=== PATIENT | female | born 1985 | race Caucasian/White ===

== ENCOUNTER 2016-05-09 08:47 | Emergency (ER) | payer OTHER ==
[~2016-05-09] VITALS: Ht 172.7 cm; Wt 140.0 kg
[~2016-05-09 08:47] MED LIST: ACET1TAB42 PO; NPR500T PO
[2016-05-09 08:48] VITALS: BP 129/86; PULSE 105; RESP 20; O2SAT 98
--- NOTE | 2016-05-09 08:55 | ED.REPORT ---
HPI-Chest Pain Under 40 Date of Service May 09, 2016 ED Provider: Dr. Randolph Kaplan MD A 31 year old female presents to the ED complaining of chest pain that began at 0200 last night. She describes the pain as "tumbling rocks in her chest". The pain begins as a burning sensation and radiates throughout her chest. Associated symptoms include nausea, intractable vomiting, watery diarrhea and abdominal pain. Patient reports numerous episodes of vomiting. She denies any recent travel, surgeries, hormonal therapy, swelling in the lower extremities or history of blood clots. Recent sick contacts include her co-workers. Patient denies dizziness, lightheadedness, hematemesis or hematochezia. Nursing Notes Stated Complaint: CHEST PAIN/VOMITING Chief Complaint: Chest Pain Nursing Notes Reviewed: Yes Allergies: Coded Allergies: No Known Allergies (Unverified Allergy, 01/27/12) Scheduled Acetaminophen/Codeine 300-30mg (Acetaminophen/Codeine 300-30mg) 1 Each Tablet 2 TAB PO HS Cephalexin (Keflex) 500 Mg Capsule 500 MG PO QID Naproxen (Naproxen) 500 Mg Tab 500 MG PO BID Scheduled PRN Ondansetron ODT (Zofran ODT) 4 Mg Tablet 4 MG PO Q4H PRN PRN For Nausea General Time Seen by MD: 08:54 Chief Complaint Chest pain Hx Obtained From: Patient Arrived By: Walk-in Sudden in Onset?: No Onset Occurred: 5 - 8 hours ago Symptom Duration: Since onset Location: : Chest left: Chest right: Epigastric Quality: Burning Radiation: : Abdomen Severity: Current: Mild Severity: Maximum: Moderate Associated with: Reports: Nausea, Vomiting, Weakness, Denies: Lightheaded Pertinent Negative: Pt denies other symptoms Recent Healthcare: No recent doctor visit, No recent hospitalization Risk Factors )( CAD Risk Stratification Risk factors reviewed TAD Risk Stratification Risk factors reviewed )( PE Risk Stratification Risk factors reviewed PERC Rule PERC Result: All PERC criteria "No" Past Medical History Past Medical History None reported. Past Surgical History None reported. Smoking History Current Every Day Smoker Social History Other Social History: Good social support, Local resident Ambulatory Status Independent Review of Systems Constitutional: Denies: Chills, Fever Respiratory: Denies: Shortness of breath Cardiovascular: Reports: Chest pain GI: Reports: Abdominal pain, Diarrhea, Nausea, Vomiting, Denies: Hematemesis, Hematochezia Neurologic: Reports: Dizziness, Denies: Change LOC, Lightheaded Complete sys rev & neg: except as marked. Physical Exam Initial Vital Signs Vital Signs (First) Date Time Temp Pulse Resp B/P Pulse Ox O2 Delivery O2 Flow Rate FiO2 05/09/16 08:48 35.6 105 20 129/86 98 Room Air Head / Eyes: Atraumatic, Normocephalic, PERRL Extremities: Vascular intact, Neuro intact, No swelling, No tenderness Skin: Warm, Dry, No cyanosis Neurologic: Alert, Oriented, Nonfocal Psychiatric: Mood/affect normal, Behavior normal, Normal thought content General/Constitutional: Awake, Alert Respiratory / Chest: Atraumatic, Breath sounds NL, Breath sounds = bilat Cardiovascular: Regular rhythm, Heart sounds NL, No murmurs Heart Rate / Rhythm: Positive: Tachycardia Abdomen: Atraumatic, Soft, No guarding, No rebound Tenderness/Guarding/Rebound: Positive: Tender epigastric Interpretation & Diagnostics Lab Results Interpretation Result Diagram: 05/09/16 0950 05/09/16 0950 Test 05/09/16 08:50 05/09/16 09:15 05/09/16 09:50 05/09/16 12:30 Hold Urine Received (Received) Hold Velez Top Tube Received (Received) White Blood Count 13.6th/mm3 (3.8-10.1) Red Blood Count 5.16mil/mm3 (3.90-5.20) Hemoglobin 13.9g/dL (12.0-15.6) Hematocrit 43.7% (35.0-46.0) Mean Corpuscular Volume 84.7fL (81-100) Mean Corpuscular Hemoglobin 26.9pg (27.0-35.0) Mean Corpuscular Hemoglobin Concent 31.8% (32.0-37.0) Red Cell Distribution Width 17.3% (12.3-15.4) Platelet Count 297bil/L (150-400) Neutrophils (%) (Auto) 79.8% (40-74) Lymphocytes (%) (Auto) 12.0% (14-46) Monocytes (%) (Auto) 6.3% (4-12) Eosinophils (%) (Auto) 1.0% (0-5) Basophils (%) (Auto) 0.2% (0-3) Sodium Level 136mEq/L (134-144) Potassium Level 4.6mEq/L (3.5-5.2) Chloride Level 96mEq/L (97-108) Carbon Dioxide Level 21mmol/L (18-29) Blood Urea Nitrogen 21mg/dL (6-20) Creatinine 0.86mg/dL (0.57-1.00) Estimat Glomerular Filtration Rate 110mL/min (>59) Glucose Level 139mg/dL (60-99) Calcium Level 9.3mg/dL (8.5-10.1) Magnesium Level 1.8mg/dL (1.6-2.6) Total Bilirubin 0.2mg/dL (0.0-1.2) Aspartate Amino Transf (AST/SGOT) 34U/L (0-50) Alanine Aminotransferase (ALT/SGPT) 46U/L (0-32) Alkaline Phosphatase 63U/L (25-150) Troponin T 0.010ug/L (0.0-0.011) Total Protein 7.1g/dL (6.4-8.4) Albumin 4.1g/dL (3.4-5.0) Lipase 15U/L (13-60) Urine Color Straw (YELLOW) Urine Appearance Clear (CLEAR,HAZY) Urine pH 5.5 (5.0-8.0) Urine Specific [place] 1.015 (1.003-1.035) Urine Protein Negativemg/dL (NEG,TRACE) Urine Glucose (UA) Negativemg/dL (NEGATIVE) Urine Ketones Negativemg/dL (NEGATIVE) Urine Occult Blood Small (NEGATIVE) Urine Nitrite Negative (NEGATIVE) Urine Bilirubin Negative (NEGATIVE) Urine Urobilinogen Normalmg/dL (NORMAL) Urine Leukocyte Esterase Trace (NEGATIVE) Urine RBC 0-2/hpf (0-2) Urine WBC 0-5/hpf (0-5) Urine Epithelial Cells Occasional/hpf (NONE-MOD) Urine Crystals None seen (NONE SEEN) Urine Bacteria Few/hpf (NONE-FEW) Urine Hyaline Casts None/lpf (NONE) Urine Granular Casts None seen (NONE SEEN) Urine Waxy Casts None seen (NONE SEEN) Urine Red Blood Cell Casts None seen (NONE SEEN) Urine White Blood Cell Casts None seen (NONE SEEN) Urine Mucus None seen (None Seen) Urine Trichomonas None seen (NONE SEEN) Urine Yeast None (NONE SEEN) Urinalysis Comment None Urine Culture Reflexed Indicated ECG Interpretation ECG Interpretation: Sinus Rhythm Rate [address] changes Time: 10:08 Interpreted by: ED physician Urinalysis Interpretation Positive blood (250), Positive leukocyte est (+) X-Ray Chest Interpretation Chest Xray Interpretation: IMPRESSION: No acute cardiopulmonary disease. Dictated by: Jadiel Brown M.D. on 05/09/2016 at 10:09 Interpretation / Wet Read by: Interpret - Radiologist Re-Eval/Medical Decision Med Decision/Clinical Course 31-year-old female with epigastric pain nausea vomiting and diarrhea times one day. She also felt like epigastric pain was burning in her chest yesterday. Vomitus is nonbloody nonbilious. Diarrhea is watery and nonbloody. Labs are stable. Vital signs stable. Patient was given 2 L normal saline and Zofran and pain medication and her nausea resolved and her pain resolved. She was observed for almost 4 hours due to lab delay. Urine positive leukocytes questionable UTI. Her chest pain workup is negative with normal chest x-ray, negative troponins, Percocet negative. It was likely related to her gastroenteritis given complaint of heartburn. Resolved prior to arrival. Patient likely with viral gastroenteritis. Cannot rule out UTI. Stool was ordered. Will be discharged with Zofran and oral antibiotics as below. Return precautions given. Re-Evaluation/Progress : Time of Eval: 11:49 Patient Status: Condition improved Re-Evaluation/Progress Note: Patient is rechecked. She reports that she is feeling much better. Patient is informed of lab results, EKG results, chest x-ray results and diagnosis. All of her questions are addressed. She understands and agrees with the treatment plan. PERC score negative Counseled Regarding: Diagnosis, Lab results, Need for follow-up, When/why to return to ED Discharge & Departure Primary Impression: Viral gastroenteritis Additional Impressions: Chest pain Chest pain type: unspecified Qualified Code: R07.9 - Chest pain, unspecified Urinary tract infection Urinary tract infection type: site unspecified Hematuria presence: without hematuria Qualified Code: N39.0 - Urinary tract infection, site not specified Disposition: Home Discharge Condition All VS Reviewed: Yes Condition: Improved Patient Instructions: Chest Pain (ED), Gastroenteritis (ED), Urinary Tract Infection in Women (ED) Additional Instructions: Thank you for trusting us with your care this morning. Your emergency department results including EKG and chest X-ray are reassuring and I believe your symptoms are likely due to viral gastroenteritis. Your lab work also revealed a urinary tract infection. Please Take Keflex as prescribed. Take 1 Zofran every 8 hours as needed for nausea. Your symptoms will likely resolve in the next 2-3 days. Please make sure to get plenty of rest and drink plenty of fluids. Schedule a follow up appointment with your primary care physician in the next week for a recheck. Please return to the emergency department for any new or worsening conditions including any difficulty breathing, worsening chest pain, uncontrollable vomiting or fever. Referrals: Shereen Houston MD (PCP) Eligio[facility]carole Attestation Portions of this note were transcribed by Margarita Harvey. I, Dr. Kaplan personally performed the history, physical exam and medical decision-making; I reviewed and confirmed the accuracy of the information in the transcribed note. Signed by: Johanna Carrizales, 05/09/16 1200. copies to: Shereen Houston MD, Ben M MD May 09, 2016 08:55 MARGARITA HARVEY May 09, 2016 09:08
[2016-05-09] MEDS ORDERED: Ondansetron 2 mg/mL 2 mL Inj IVPUSH ONE (09:30)
[2016-05-09] MEDS ORDERED: 0.9% Sodium Chloride 1,000 ML IV ONE ×2 (09:30→09:50)
[2016-05-09] MEDS ORDERED: Ondansetron 2 mg/mL 2 mL Inj IVPUSH PRN (09:30)
--- NOTE | 2016-05-09 10:11 | DRSVH ---
PROCEDURE: X-RAY CHEST ONE VIEW, PORTABLE ([id number]) INDICATIONS: 31 year-old female with chest pain for 2 days. TECHNIQUE: One view of the chest was acquired. COMPARISON: [facility], , CHEST 2VW, 05/16/2013, 16:42. FINDINGS: Surgical changes and devices: None. Lungs and pleura: No pleural effusions or pneumothorax. Lungs are clear. Mediastinum: Mediastinal contours appear normal. Heart size is normal. Bones and chest wall: No suspicious bony lesions. Overlying soft tissues appear unremarkable. IMPRESSION: No acute cardiopulmonary disease. Dictated by: Jadiel Brown M.D. on 05/09/2016 at 10:09 Approved by: Jadiel Brown M.D. on 05/09/2016 at 10:10
[2016-05-09 10:48] LABS: BASOPHILS % (AUTO) 0.2 % (0-3); MONOCYTES % (AUTO) 6.3 % (4-12); Mean Corpuscular Hemoglobin 26.9 pg (27.0-35.0); Mean Corpuscular Volume 84.7 fL (81-100); NEUTROPHILS % (AUTO) 79.8 % (40-74); Platelet Count 297 bil/L (150-400)
[2016-05-09 11:03] LABS: TROPONIN T 0.01 ug/L (0.0-0.011)
[2016-05-09 11:14] LABS: Magnesium 1.8 mg/dL (1.6-2.6)
[2016-05-09 11:26] VITALS: BP 140/70; PULSE 88; RESP 16; O2SAT 98
[2016-05-09] MEDS ORDERED: ONDA4TAB9 PO (11:53)
[2016-05-09] MEDS ORDERED: CEPH-512 PO (12:43)
[2016-05-09 12:58] VITALS: BP 105/76; PULSE 75; RESP 16; O2SAT 98
[2016-05-09 13:10] LABS: APPEARANCE,URINE CLEAR (CLEAR,HAZY); COLOR,URINE STRAW (YELLOW); OCCULT BLOOD,URINE SMALL (NEGATIVE); PH,URINE 5.5 (5.0-8.0); UROBILINOGEN,URINE NORMAL (NORMAL)
== END 2016-05-09 12:59 | disposition home or self-care (01) ==
LOC: SED 08:47
DX: A08.4 Viral intestinal infection, unspecified (principal); R07.9 Chest pain, unspecified; N39.0 Urinary tract infection, site not specified; F17.200 Nicotine dependence, unspecified, uncomplicated
CPT/HCPCS: 36415; 71010; 80053; 81000; 81025; 83690; 83735; 84484; 85025; 87086; 87088; 93005; 96361; 96374; 96375; 99285; J2270; J2405; J7030